=== PATIENT | female | born 1995 | race Caucasian/White ===

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

== ENCOUNTER 2018-11-17 14:31 | Emergency (ER) | payer OTHER ==
[2018-11-17 14:47] VITALS: BP 122/75
--- NOTE | 2018-11-17 14:58 | UC ---
Throat Pain/Nasal Jake HPI - HPI Summary HPI Summary: 2 day history of nasal congestion, headache, low grade fever and cough. Feels unwell and lightheaded and could not make it through her classes today. Using dayquil and nyquil with some relief. - History of Current Complaint Chief Complaint: UCGeneralIllness Stated Complaint: CONGESTION,SINUSES Time Seen by Provider: 11/17/18 14:49 Hx Obtained From: Patient Hx Last Menstrual Period: 11/06/16-PRESENT Onset/Duration: Gradual Onset, Lasting Days - 2 Severity: Moderate Pain Intensity: 0 Cough: Nonproductive Associated Signs & Symptoms: Positive: Dysphagia, Sinus Discomfort, Nasal Discharge - Epiglottits Risk Factors Epiglottis Risk Factors: Negative - Allergies/Home Medications Allergies/Adverse Reactions: Allergies Allergy/AdvReac Type Severity Reaction Status Date / Time No Known Allergies Allergy Verified 11/17/18 14:47 Home Medications: Home Medications NK [No Home Medications Reported] 11/17/18 [History Confirmed 11/17/18] PMH/Surg Hx/FS Hx/Imm Hx Previously Healthy: Yes - Surgical History Surgical History: None - Family History Known Family History: Positive: None - parents living and well Negative: Respiratory Disease - Social History Occupation: Student Lives: Dormitory/Roommates Alcohol Use: None Substance Use Type: None Smoking Status (MU): Never Smoked Tobacco - Immunization History Most Recent Influenza Vaccination: NONE 2016 Review of Systems All Other Systems Reviewed And Are Negative: Yes Constitutional: Positive: Fatigue Eyes: Positive: Negative ENT: Positive: Sore Throat, Ear Ache, Sinus Congestion Respiratory: Positive: Cough. Negative: Shortness Of Breath Cardiovascular: Positive: Palpitations, Chest Pain Gastrointestinal: Positive: Abdominal Pain. Negative: Vomiting, Diarrhea, Nausea Genitourinary: Positive: Negative Physical Exam Triage Information Reviewed: Yes Appearance: Ill-Appearing - looks mildly unwell Vital Signs: Initial Vital Signs Temp 98.8 F 11/17/18 14:43 Pulse 92 11/17/18 14:43 Resp 18 11/17/18 14:43 BP 122/75 11/17/18 14:43 Pulse Ox 99 11/17/18 14:43 Eyes: Positive: Conjunctiva Clear ENT: Positive: Pharyngeal erythema, Nasal congestion - boggy nasal mucosa, TM dull - on right, Hoarse voice. Negative: Tonsillar swelling Dental Exam: Normal Neck: Positive: Supple, Nontender, Enlarged Nodes @ - left tonsillar is mildly enlarged. Respiratory: Positive: Lungs clear, Normal breath sounds Cardiovascular: Positive: RRR, No Murmur Musculoskeletal Exam: Normal Neurological Exam: Normal Psychological Exam: Normal Skin Exam: Normal Throat Pain/Nasal Course/Dx - Course Course Of Treatment: symptomatic treatment of viral URI. - Differential Dx/Diagnosis Differential Diagnosis/HQI/PQRI: Influenza, Sinusitis, Tonsillitis, URI Provider Diagnosis: URI with cough and congestion Discharge ED - Sign-Out/Discharge Documenting (check all that apply): Patient Departure All imaging exams completed and their final reports reviewed: No Studies - Discharge Plan Condition: Stable Disposition: HOME Patient Education Materials: Upper Respiratory Infection (ED) Forms: *School Release Referrals: Non Staff,Doctor [Primary Care Provider] - Additional Instructions: For symptoms relief you might try: 1) Plain saline nasal spray helps to decrease swelling--can be used 3 or 4 times per day 2) flonase nasal spray over the counter--2 sprays to both nostrils once daily ( first day can use it twice) 3)small doses of pseudoephedrine 30mg up to 3 times per day. This can help to relieve congestion. You do have to ask the pharmacist for this, and if you do try it, do NOT combine with Dayquil or Nyquil --owever, could be more effective than either. You CAN combine it with ibuprofen 600mg for general aches and headaches, using ibuprfen up to 3 times per day. - Billing Disposition and Condition Condition: STABLE Disposition: Home
== END 2018-11-17 15:14 | disposition home or self-care (01) ==
LOC: UCCORT 14:31
DX: J06.9 Acute upper respiratory infection, unspecified (principal)
CPT/HCPCS: 99211; G0463